=== PATIENT | female | born 1940 | race Caucasian/White ===

== ENCOUNTER 2020-03-29 18:09 | Emergency (ER) | payer MEDICARE ==
[~2020-03-29] VITALS: Ht 157.5 cm; Wt 72.6 kg
[2020-03-29] MEDS ORDERED: NORVASC5 MG PO (18:20)
[2020-03-29] MEDS ORDERED: LISINOPRIL-HCT1 EAC1 PO (18:20)
[2020-03-29] MEDS ORDERED: ESCITALOPRAM OX20 MG PO (18:21)
[2020-03-29] MEDS ORDERED: CENTRUM SILVER1 EAC6 PO (18:21)
[2020-03-29] MEDS ORDERED: LOW DOSE ASPIRI81 M1 PO (18:21)
[2020-03-29] MEDS ORDERED: CALCIUM WITH VIT D (18:22)
[2020-03-29 20:37] VITALS: BP 148/66
[2020-03-30] MEDS ORDERED: ZOFRAN ODT4 MG DISSOLVE (13:27)
[2020-03-30] MEDS ORDERED: MECLIZINE HCL25 M1 PO (13:27)
== END 2020-03-29 20:48 | disposition home or self-care (01) ==
LOC: M.ERS 18:09
DX: S01.01XA Laceration without foreign body of scalp, initial encounter (principal); M54.2 Cervicalgia; I10 Essential (primary) hypertension; W01.0XXA Fall on same level from slipping, tripping and stumbling without subsequent striking against object, initial encounter; Y93.89 Activity, other specified; Y92.89 Other specified places as the place of occurrence of the external cause; Y99.8 Other external cause status

== ENCOUNTER 2020-03-30 11:34 | Emergency (ER) | payer MEDICARE ==
[~2020-03-30] VITALS: Ht 157.5 cm; Wt 72.6 kg
[~2020-03-30 11:34] MED LIST: CALCIUM WITH VIT D; CENTRUM SILVER1 EAC6 PO; ESCITALOPRAM OX20 MG PO; LISINOPRIL-HCT1 EAC1 PO; LOW DOSE ASPIRI81 M1 PO; NORVASC5 MG PO
[2020-03-30 12:36] LABS: ABSOLUTE BASOPHILS 0.1 thou/uL (0.0-0.2); ABSOLUTE EOSINOPHILS 0.1 thou/uL (0.0-0.7); ABSOLUTE LYMPHOCYTES 1.3 thou/uL (0.8-5.3); ABSOLUTE MONOCYTES 0.6 thou/uL (0.0-1.2); ABSOLUTE NEUTROPHILS 6.4 thou/uL (1.6-8.1); BASOPHILS 0.7 %; EOSINOPHILS 0.6 %; LYMPHOCYTES 15.3 %; MCH 31.7 pg (26.0-34.0); MCHC 34.4 g/dL (28.0-37.0); MCV 92.4 fL (80.0-100.0); MONOCYTES 7.1 %; MPV 9.6 fl. (7.2-11.1); NUCLEATED RBCS 0 /100WBC; PLATELET COUNT* 219 thou/uL (150-400); POLYS 76.3 %; RBC 3.79 mil/uL (4.20-5.00); RDW-CV 12.8 % (10.5-14.5); WBC 8.4 thou/uL (4.0-11.0)
[2020-03-30 12:48] LABS: CALCIUM 8.8 mg/dL (8.5-10.1); CREATININE 0.8 mg/dL (0.6-1.3); POTASSIUM 3.8 mmol/L (3.5-5.1)
[2020-03-30 12:52] LABS: ALBUMIN 3.8 g/dL (3.4-5.0); TOTAL BILIRUBIN 0.5 mg/dL (<0.1-1.0); TOTAL PROTEIN 7.3 g/dL (6.4-8.2)
[2020-03-30] MEDS ORDERED: MECLIZINE HCL25 M1 PO (13:27)
[2020-03-30] MEDS ORDERED: ZOFRAN ODT4 MG DISSOLVE (13:27)
[2020-03-30 14:08] VITALS: BP 148/59
--- NOTE | 2020-03-31 17:30 | EKG ---
[place] [address] ELECTROCARDIOGRAM REPORT Name: CRISTIANO WATSON Room: [facility]#: [id number] Admission: 03/30/20 Attend Phys: Discharge: 03/30/20 Date of : 44 Date of Service: 03/30/20 1218 Report #: [id number] THIS REPORT FOR: //name// [facility] ED Test Date: 2020-03-30 Test Time: 12:18:58 Pat Name: CRISTIANO WATSON Department: Room: Gender: Assistant Pastry Chef: CCD : 1940 Requested By: Ivan Conley Order Number: [id number] MD: Campos Montiel Measurements Intervals [place] Rate: 82 P: 56 MI: 159 QRS: 33 QRSD: 106 T: -17 QT: 377 QTc: 441 Interpretive Statements Sinus rhythm Inferior infarct, age indeterminate possible No previous ECG available for comparison Electronically Signed On 03-31-2020 17:30:08 CDT by Campos Montiel [email or web address] <ELECTRONICALLY SIGNED> By: Campos Montiel MD, [facility] 03/31/20 1730 1218 17 Campos Montiel MD, FACC /EPI
== END 2020-03-30 14:09 | disposition home or self-care (01) ==
LOC: M.ERS 11:34
PROVIDERS: Emergency Medicine Emergency Medical Services
DX: R42 Dizziness and giddiness (principal); I10 Essential (primary) hypertension

== ENCOUNTER 2020-04-09 13:36 | Emergency (ER) | payer MEDICARE ==
[~2020-04-09] VITALS: Ht 157.5 cm; Wt 72.6 kg
[~2020-04-09 13:36] MED LIST changes: +MECLIZINE HCL25 M1 PO; +ZOFRAN ODT4 MG DISSOLVE
[2020-04-09 13:53] VITALS: BP 146/78
== END 2020-04-09 13:55 | disposition home or self-care (01) ==
LOC: M.ERS 13:36
DX: S01.01XD Laceration without foreign body of scalp, subsequent encounter (principal); I10 Essential (primary) hypertension; Z79.899 Other long term (current) drug therapy; Z79.82 Long term (current) use of aspirin; X58.XXXD Exposure to other specified factors, subsequent encounter

== ENCOUNTER 2021-01-16 13:10 | Emergency (ER) | payer MEDICARE ==
[~2021-01-16] VITALS: Ht 157.5 cm; Wt 63.5 kg
[2021-01-16 14:06] LABS: URINE BLOOD 3+ (Negative); URINE CLARITY CLOUDY; URINE COLOR YELLOW; URINE GLUCOSE-RANDOM NEGATIVE (Negative); URINE KETONES NEGATIVE (Negative); URINE PROTEIN 2+ (Negative)
[2021-01-16 14:12] LABS: ICTOTEST (BILI CONFIRMATORY) Negative (Negative); URINE BILIRUBIN 1+ (Negative); URINE LEUKOCYTES-REFLEX 2+ (Negative); URINE NITRITE-REFLEX POSITIVE (Negative)
[2021-01-16 14:16] LABS: ABSOLUTE BASOPHILS 0.1 thou/uL (0.0-0.2); ABSOLUTE EOSINOPHILS 0.1 thou/uL (0.0-0.7); ABSOLUTE LYMPHOCYTES 2.5 thou/uL (0.8-5.3); ABSOLUTE MONOCYTES 0.7 thou/uL (0.0-1.2); ABSOLUTE NEUTROPHILS 10.1 thou/uL (1.6-8.1); BASOPHILS 0.5 %; EOSINOPHILS 0.7 %; HEMATOCRIT 37.6 % (37.0-47.0); HEMOGLOBIN 12.4 gm/dL (12.0-15.0); LYMPHOCYTES 18.7 %; MCH 31.4 pg (26.0-34.0); MCV 95.3 fL (80.0-100.0); MONOCYTES 5.3 %; MPV 10.1 fl. (7.2-11.1); NUCLEATED RBCS 0 /100WBC; PLATELET COUNT* 309 thou/uL (150-400); POLYS 74.8 %; RBC 3.94 mil/uL (4.20-5.00); RDW-CV 12.7 % (10.5-14.5); WBC 13.5 thou/uL (4.0-11.0)
[2021-01-16 14:19] LABS: CALCIUM 9.7 mg/dL (8.5-10.1); POTASSIUM 3.2 mmol/L (3.5-5.1); SQUAMOUS 0-3 Few /LPF (0-3); URINE RBC >20 Many /HPF (0-2); URINE WBC-REFLEX >25 Many /HPF (0-5)
[2021-01-16 14:20] LABS: CASTS None Seen /LPF (None Seen); CRYSTALS None Seen /LPF (None Seen); TRANSITIONAL EPITHEL CELL 0-3 Few /LPF (None Seen)
[2021-01-16 14:23] LABS: ALBUMIN 4.3 g/dL (3.4-5.0); TOTAL BILIRUBIN 0.4 mg/dL (<0.1-1.0); TOTAL PROTEIN 8.3 g/dL (6.4-8.2)
[2021-01-16] MEDS ORDERED: CITRATE OF MAG296 M1 PO (16:03)
[2021-01-16] MEDS ORDERED: CEPHALEXIN500 MG PO (16:03)
[2021-01-16 17:35] VITALS: BP 142/90
== END 2021-01-16 17:35 | disposition home or self-care (01) ==
LOC: M.ERS 13:10
PROVIDERS: Family Medicine; Nurse Practitioner Family
DX: K59.00 Constipation, unspecified (principal); N39.0 Urinary tract infection, site not specified; K57.30 Diverticulosis of large intestine without perforation or abscess without bleeding; K44.9 Diaphragmatic hernia without obstruction or gangrene; N81.4 Uterovaginal prolapse, unspecified; I10 Essential (primary) hypertension